=== PATIENT | female | born 1955 | race Caucasian/White ===

== ENCOUNTER → 2023-09-07 | Outpatient (CLI) | payer MEDICARE, BC ==
--- NOTE | 2023-09-10 14:13 | MR ---
EXAMINATION TYPE: MR knee LT wo con DATE OF EXAM: 09/07/2023 COMPARISON: Left HISTORY: Left knee pain and swelling TECHNIQUE: Multiplanar, multisequence imaging of the left knee is performed without IV contrast. FINDINGS: Exam is limited by poor resolution secondary to involuntary patient motion and body habitus. There is no bone contusion or fracture. There is mild osteoarthritic change of the patellofemoral compartment and lateral compartment the kne e where there is mild thinning and chondromalacia of the articular cartilages and mild hypertrophic s purring. There is marked osteoarthritic change of the medial compartment where there is marked joint space stacia rowing, loss of articular cartilage, subchondral bony changes in the tibia and marked hypertrophic sp urring. There is also displacement of the medial meniscus medially. There is no definite tear of the medial meniscus. There is mild strain of the medial collateral ligament. The lateral collateral ligament and cruciate ligaments are intact. There is a tear within the body and posterior horn of the lateral meniscus.. There is mild stretching and abnormal signal intensity within the patellar tendon consistent with ten dinitis. The quadriceps tendon is intact. There is minimal joint fluid. IMPRESSION: 1. Tricompartment osteoarthritis, severe in the medial compartment. 2. Tear of the lateral meniscus as described above. 3. Mild strain of the medial collateral ligament. 4. Tendinitis of the patellar tendon.
== END | disposition home or self-care (01) ==
LOC: RADMRIMAIN 14:47
PROVIDERS: ATTEND Family Medicine
DX: S83.282A Other tear of lateral meniscus, current injury, left knee, initial encounter (principal); M17.12 Unilateral primary osteoarthritis, left knee; M76.52 Patellar tendinitis, left knee